=== PATIENT | female | born 1950 | race Caucasian/White ===

== ENCOUNTER → 2020-03-26 | Outpatient (CLI) | payer MEDICARE, OTHER ==
--- NOTE | 2020-03-26 14:38 | Diagnostic Imaging Report ---
Exam: Bone mineral density study. History: Osteopenia. Comparison: None Discussion: Evaluation of the left hip and lumbar spine was performed utilizing DEXA Hologic bone densitometer. The study is technically adequate. Scoliosis of the spine. Left hip total bone mineral density: 0.760gm/cm2, T-score is -1.5, Z-score is -0.1. Left hip femoral neck bone mineral density: 0.676gm/cm2, T-score is -1.6, Z-score is 0.2. Lumbar spine total bone mineral density:0.907gm/cm2, T-score is-1.3, Z-score is 0.7. Impression: 1. Osteopenia of the left hip, fracture risk is increased 2. Osteopenia of the lumbar spine, fracture risk is increased Least significant change (LSC) for bone mineral density as provided by [employer] machine operator is 0.023 g/cm2 for lumbar spine and 0.027 g/cm2 for total hip. 10 -year fracture risk per WHO Fracture Risk Assessment Tool (FRAX) for: Major osteoporotic fracture is 13.0% Hip fracture is 1.8% The above fracture probability is calculated for an untreated patient. Fracture probably may be lower if the patient has received treatment. All treatment decisions require clinical judgment and consideration of individual patient factors, including patient preferences, comorbidities, previous drug use and risk factors not captured in the FRAX model (e.g. frailty, falls, vitamin D deficiency, increased bone turnover, interval significant decline in BMD). The patient's fracture risk is compared to an age-matched control. Medical evaluation for secondary causes of low bone bone mineral density may be appropriate. Correlate clinically for the necessity and timing of the next bone mineral density study. Signed by: Dr. Jared Benavides M.D. on 03/26/2020 2:35 PM
== END ==
LOC: DX 13:34
PROVIDERS: ATTEND Specialist
DX: Z13.820 Encounter for screening for osteoporosis (principal); M85.89 Other specified disorders of bone density and structure, multiple sites
CPT/HCPCS: 77080

== ENCOUNTER → 2020-04-15 | Outpatient (RCR) | payer MEDICARE, OTHER | LOC: OT 04-08 11:06 | PROVIDERS: ATTEND Specialist | DX: S52.502D Unspecified fracture of the lower end of left radius, subsequent encounter for closed fracture with routine healing (principal); M25.532 Pain in left wrist; M25.632 Stiffness of left wrist, not elsewhere classified; M25.542 Pain in joints of left hand ==

== ENCOUNTER 2020-05-14 13:56 | Outpatient (RCR) | payer MEDICARE, OTHER | END 2020-05-16 | LOC: OT 13:56 | PROVIDERS: ATTEND Specialist | DX: S52.502D Unspecified fracture of the lower end of left radius, subsequent encounter for closed fracture with routine healing (principal); M25.532 Pain in left wrist; M25.632 Stiffness of left wrist, not elsewhere classified; M25.542 Pain in joints of left hand ==

== ENCOUNTER 2020-06-10 14:00 | Outpatient (RCR) | payer MEDICARE, OTHER | END 2020-06-15 | LOC: OT 14:00 | PROVIDERS: ATTEND Specialist | DX: S52.502A Unspecified fracture of the lower end of left radius, initial encounter for closed fracture (principal) ==

== ENCOUNTER 2020-06-24 11:00 | Outpatient (RCR) | payer MEDICARE, OTHER | END 2020-07-16 | LOC: OT 11:00 | PROVIDERS: ATTEND Specialist | DX: S52.502A Unspecified fracture of the lower end of left radius, initial encounter for closed fracture (principal) ==